=== PATIENT | male | born 1965 | race Caucasian/White ===

== ENCOUNTER 2020-03-30 12:06 | Day surgery (SDC) | payer OTHER ==
[2020-03-19 10:16] VITALS: BMI 35.3
[2020-03-30] MEDS ORDERED: BUPIVACAINE HCL/PF 0.5% (5MG/ML) 10 ML VIAL ONE ×2 (14:16→15:18)
[2020-03-30] MEDS ORDERED: methylPREDNISolone ACET (DEPO) 40 MG/1 ML VIAL ONE (14:16)
[2020-03-30] MEDS ORDERED: MIDAZOLAM HCL 2 MG/2 ML SINGLE DOSE VIAL ONE (14:54)
[2020-03-30] MEDS ORDERED: BUPIVACAINE HCL/PF 0.5% (5 MG/ML) 30 ML VIAL IJ ONE (15:20)
[2020-03-30] MEDS ORDERED: KETOROLAC TROMETHAMINE 30 MG/1 ML VIAL IM ONE (15:20)
[2020-03-30] MEDS ORDERED: ONDANSETRON 4 MG/2 ML VIAL IVPUSH PRN (15:24)
[2020-03-30] MEDS ORDERED: ACETAMINOPHEN 325 MG TABLET (FP) PO PRN (15:24)
[2020-03-30] MEDS ORDERED: ceFAZolin SODIUM 1 GM VIAL ONE (15:36)
[2020-03-30 16:33] VITALS: BP 133/85; PULSE 84
[2020-03-30 16:45] VITALS: TEMP 97.8
--- NOTE | 2020-03-31 11:12 | OP ---
DATE OF OPERATION: 03/30/2020 PREOPERATIVE DIAGNOSIS: Lumbar spinal instability with radiculopathy. POSTOPERATIVE DIAGNOSIS: Lumbar spinal instability with radiculopathy. PROCEDURE PERFORMED: Lumbar facet block under fluoroscopic guidance L4-L5 left facet and L4-L5 right face. SURGEON: Rancho Lee MD DENTAL INSTRUCTOR: None. ANESTHESIOLOGIST: Benny Abraham DO ANESTHESIA: Monitored anesthesia care was performed. PROCEDURE IN DETAIL: The procedure consisted of the patient being brought to the operating room and gently transferred from the stretcher to the OR stable with all bony prominences well padded. The lumbar spine was prepared and draped in sterile fashion. The patient was given intravenous antibiotics and copious irrigation throughout the procedure to minimize the risk of infection. A complete risks, benefits, and alternatives discussion was conducted with the patient which included but not limited to infection, bleeding, , paralysis, increased pain and need for repeat surgery. The patient asked questions, understood the procedure and desired to proceed with surgical treatment. Following sterile preparation of the lumbar spine, fluoroscopic guidance was used to identify the left L4-L5 facet and then the right L4-L5 facet. This noted a metallic implant at the L5-S1 level. A 22-gauge spinal needle was introduced in the left L4-L5 facet and the right L4-L5 facet. Due to an allergy to DEPO-MEDROL, the patient was given Toradol 30 mg followed by 4 mL of 0.5% Marcaine and this was instilled into the facet in the area immediately adjacent to the facet on the left and right sides. Leon were withdrawn. Sterile dressings were applied. The patient was then gently awoken from anesthesia without incident and transferred from the operating room to the recovery room in satisfactory condition. There were no intraoperative complications. RANCHO LEE M.D. [id number] MTDD
== END 2020-03-30 16:45 | disposition home or self-care (01) ==
LOC: FASU 12:06
PROVIDERS: ATTEND Orthopaedic Surgery
PROC: 3E0T3BZ Introduction of Anesthetic Agent into Peripheral Nerves and Plexi, Percutaneous Approach (ICD-10-PCS; 2020-03-30)
PROC: BR16YZZ Fluoroscopy of Lumbar Facet Joint(s) using Other Contrast (ICD-10-PCS; 2020-03-30)
PROC: 3E0T33Z Introduction of Anti-inflammatory into Peripheral Nerves and Plexi, Percutaneous Approach (ICD-10-PCS; principal; 2020-03-30 15:17)
DX: M53.2X6 Spinal instabilities, lumbar region (principal); M54.16 Radiculopathy, lumbar region
CPT/HCPCS: 72100-TC-FY; 94760